=== PATIENT | female | born 1940 | race Caucasian/White ===

== ENCOUNTER 2025-10-09 11:27 | Outpatient (OUT) | payer MEDICARE, OTHER, SELFPAY ==
--- OUTSIDE RECORDS SUMMARY | 2025-09-29 15:00 | XMS_ITS | Encounter Summary ---
Author Organization [employer] [facility] tem Address [facility] [place]-[id number] [address] [place] [address] Care Team Providers Care Contact Assembler Name Role Phone Salome Cohen APRN-CHAPITO Primary Care Provider Reason for Visit * ReasonCommentsNew PatientPatient presents for research professional appointment for Memory changes. Presents with son. * Consultation (Routine) - Pending ReviewSpecialtyDiagnoses / ProceduresReferred By ContactReferred To ContactNeurology Diagnoses Memory changes Salome Cohen, DRAFTER APPRENTICE-INSTRUCTOR TAP DANCING [address] [place] [address] Phone: tel: fax: Lorie Jacques MD [address] [place] [address] Phone: tel: fax: Referral IDStatusReasonStart DateExpiration DateVisits RequestedVisits [id number] Review Specialty Services Required Encounter Details DateTypeDepartmentCare Team (Latest Contact Info)Eljyyueougg59/09/2025 3:00 PM ESTOffice Visit [facility] [place] [address] [place] [address] New Gonzalez, L[place] [address] [facility], [facility] [address] [place] [address] Mixed dementia (CMS-HCC) (Primary Dx) Social History Tobacco UseTypesPacks/DayYears UsedDateSmoking Tobacco: NeverSmokeless Tobacco: NeverAlcohol UseStandard Drinks/WeekCommentsNo0 (1 standard drink = 0.6 oz pure alcohol)PHQ-2AnswerDate RecordedTotal Xzbtb5144ChildcareAnswerDate BcgpqbfaEgwrgeogdWopunvu30/12/2019EmploymentAnswerDate RecordedEmploymentUnknown 04/02/2019Hunger ScreeningAnswerDate RecordedWithin the past 12 months we worried whether our food would run out before we got money to buy more.Never True08/31/2025Within the past 12 months the food we bought just didn't last and we didn't have money to get more.Never True08/31/2025Purpose - LifeAnswerDate RecordedPurpose and direction in mkxhWaqlojq73/11/2021CommentsNoSex and Gender InformationValueDate RecordedSex Assigned at BirthNot on fileLegal Sex Qbjdsv3505/27/2015 12:03 PM EDTGender IdentityNot on fileSexual OrientationNot on filedocumented as of this encounter Last Filed Vital Signs Vital SignReadingTime TakenCommentsBlood Zwcyyvme630/7609/29/2025 3:00 PM EST lkbpPulse--Temperature--Respiratory Rate--Oxygen Saturation--Inhaled Oxygen Concentration--Nkowdo19 kg (141 lb)09/29/2025 3:00 PM WBQUhdasg572.6 cm (5' 4 ) 09/29/2025 3:00 PM ESTBody Mass Index24. 3:00 PM ESTdocumented in this encounter Functional Status * BPAnswerDate of RbaigtqzhuFbuuco444/7609/29/2025 3:00 PM Igor Fiore CMA * HeightAnswerDate of LoxgyvewgeNrainf3798/09/2025 3:00 PM Igor Fiore CMA * WeightAnswerDate of JlwqevpatqDgyikc680854/09/2025 3:00 PM Igor Fiore CMA * BEE (kcal)AnswerDate of EphqfghkwkXdsnfq430760/09/2025 3:00 PM ESTThierrye, Igor, DIGESTION OPERATOR * BSA (Calculated - sq m)AnswerDate of AssessmentAuthor1. 3:00 PM EST Monae, Igor, DIGESTION OPERATOR * BMI (Calculated)AnswerDate of OrjoxdtlhySxveza09. 3:00 PM ESTWitte, Igor, DIGESTION OPERATOR * Weight in (lb) to have BMI = 25AnswerDate of CmpixhwtyiYqosvj105. 3:00 PM ESTTraceette Igor, DIGESTION OPERATOR * BPAnswerDate of EotwxatyvdQrdths965 3:00 PM ESTWicassie, Igor, DIGESTION OPERATOR * HeightAnswerDate of GarlzeoxitXftdlh2164/09/2025 3:00 PM ESTWitte, Igor, DIGESTION OPERATOR * WeightAnswerDate of RmuvuwjeyqLkconp344364/09/2025 3:00 PM Joby Fioreis, DIGESTION OPERATOR * BEE (kcal)AnswerDate of IgsrtvqmwiOakdbb087007/09/2025 3:00 PM ESTMonae Igor, DIGESTION OPERATOR * BSA (Calculated - sq m)AnswerDate of AssessmentAuthor1. 3:00 PM EST Monae, Igor, DIGESTION OPERATOR * BMI (Calculated)AnswerDate of HdbewlboicUycddq75. 3:00 PM ESTWicassie, Igor, DIGESTION OPERATOR * Weight in (lb) to have BMI = 25AnswerDate of SctxmzkqkgHhwncs555. 3:00 PM ESTMonae Igor, DIGESTION OPERATOR documented as of this encounter Mental Status * BPAnswerEntry KanoRykctr474 3:00 PM ESTWitte, Igor, DIGESTION OPERATOR documented in this encounter Progress Notes * New Gonzalez PA-C - 09/29/2025 3:00 PM EST [facility] Office Note 09/28/2025 2:39 PM Patient info: Kami Kuhn is a 85 y.o. female Account No.: [id number] Acct: : 1940 PCP: DAVIDE Mcgill Chief Complaint: Patient, 85 year old female, presents today for initial Neurological evaluation regarding memory changes. Referred by Hossein AUGUSTINE Kami is present in the office today with her son. HPI: Some intermittent confusion and short-term memory lapses. Onset was within approximately the last 1 year, with gradual worsening. Home: lives with son and dvsawwjr-eg-qlq ADLs: able to complete on her own; started struggling with managing her medications over the past few months Ambulation: ambulates without an assistive device; pace has slowed a bit and reportedly takes smaller steps as well Driving: none Finances: does not manage herself; son took over this year (2024) Level of Education: 12th grade Sleep: - Average Amount: unclear - Dream Reenactment: no Paranoia: none Delusions: none Hallucinations: none (-) hx significant head injury/trauma: (-) hx PERCUSSION TUNER infection: (-) hx seizures: (-) hx stroke: (-) hx intracranial tumor/mass/cyst: (+) hx anxiety/depression/mood disorder: hx dysthymia (+) urinary incontinence: Social Hx: Tobacco: none Alcohol: none Illicit Substances: none Family Hx: Mother: DM, stroke, Alzheimer's Father: --- Siblings: DM, stroke Current Vitamins/Supplements: - Vitamin D3 - Ca2+ - Vitamin B12 - MVI Recent/Pertinent Labs: --- Previous Studies: 06/04/25: Brain MRI without contrast - No evidence of restricted diffusion to suggest acute or subacute age of infarction. - Severe small vessels ischemic change in the deep white matter supratentorially and the brainstem. - No evidence of intracranial mass or acute pathology. Past Medical Hx: See EMR Social Hx: Tobacco: none ETOH: none Illicit Substances: none Family Hx: Mother: DM, stroke, Alzheimer's Father: --- Siblings: DM, stroke Surgical Hx: See EMR Allergies: See EMR Review of Systems: Constitutional: Negative for fever, chills, sweats, or unintentional weight loss Eyes: Negative HENT: Negative Cardiovascular: Negative for chest pain and palpitations Respiratory: Negative for cough and shortness of breath Gastrointestinal: Negative for nausea, vomiting, abdominal pain and diarrhea Genitourinary: Negative for dysuria, urgency, frequency, or hematuria Musculoskeletal: Negative for myalgias or joint swelling Skin: Negative Neurological: - as noted in the HPI Psychiatric/Behavioral: Negative Endocrine: Negative Hem/Onc: Negative Allergy/Immunology: Negative Vitals: BP: 138/76 HR: --- Weight: 64 kg Physical Exam: General: well groomed, appears stated age Neurological Exam: The patient is awake, alert, and attentive Speech and language are fairly normal Normal affect, with decreased orientation and cognition EOMI, PERRL, No gross visual field deficits Face is symmetric, Tongue protrudes midline Palate rises symmetrically with uvula midline Shoulder shrug is strong bilaterally Nose to finger testing is without dysmetria Upper Extremity Drift is (-) Fine motor skills are approximately equal in each hand Tremor: (-) Sensation is intact and symmetric in the extremities bilaterally DTR's are 1+ along the right side and 2+ along the left side Sanchez's sign (-) bilaterally Strength throughout the Upper Extremities is 5/5 Strength throughout the Lower Extremities is 5/5 Muscle Tone throughout the extremities is normal without rigidity or cog-wheeling Romberg is (); not tested today Gait is steady with normal base, shortened strides and reduced bilateral arm swing MOCA: 08/20 ASSESSMENT: Kami is an 85 year old left hand dominant female with a hx of arthritis, dysthymia, constipation, and insomnia who has signs and symptoms most consistent with mild-moderate dementia, 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 PLAN: Labs: ESR, CRP, ANCA, Lyme, Heavy Metals; CMP, Thyroid profile, and Vitamin B12 already ordered by PCP Start Donepezil 5 mg HS Supportive Care Follow up in the office in 3 months with myself and [address] Claudia MELO Electronically Signed by: New Gonzalez PA-C 09/29/25 1634 documented in this encounter Plan of Treatment DateTypeDepartmentCare Team (Latest Contact Info)Zfjucudbcav67/10/2026 1:00 PM EDTOffice Visit [facility] [place] [address] [place] [address] New Gonzalez PA-C [address], [address] [place] [address] 12/31/2025 2:45 PM EDTOffice Visit [facility] [address] [place] [address] Salome Cohen, DRAFTER APPRENTICE-INSTRUCTOR T[employer] DANCING [address] [place] [address] 04/13/2026 1:30 PM EDTOffice Visit [facility] [place] [address] [place] [address] Alex Taylor MD [address] [place] [address] [address] [place] [address] NameTypePriorityAssociated DiagnosesOrder ScheduleErythrocyte Sedimentation Rate (ESR)LabRoutine Mixed dementia ([facility]) 1 Occurrences starting 09/29/2025 until 6C-reactive proteinLabRoutine Mixed dementia ([facility]) 1 Occurrences starting 09/29/2025 until 09/29/2026ytoplasmic Neutrophilic Ab (ANCA), SLabRoutine Mixed dementia ([facility]) 1 Occurrences starting 09/29/2025 until 09/29/2026Lyme TotalLabRoutine Mixed dementia ([facility]) 1 Occurrences starting 09/29/2025 until 09/29/2026Heavy Metals Scrn with DemographicsLabRoutine Mixed dementia ([facility]) 1 Occurrences starting 09/29/2025 until 09/29/2026documented as of this encounter Procedures Procedure NamePriorityDate/TimeAssociated DiagnosisCommentsAMB REFERRAL TO YJSMONMOFUfwwiqu21/09/2025 4:34 PM ESTdocumented in this encounter Results * [facility] [place], [place] (09/29/2025 4:34 PM EST) Narrative Authorizing ProviderResult TypeResult StatusSalome Cohen DRAFTER APPRENTICE-CNPOUTPATIENT REFERRAL ORDERABLESFinal ResultPerforming OrganizationAddressCity/State/ZIP Code Phone Number MANUALLY TRANSCRIBED RESULTS documented in this encounter Visit Diagnoses Diagnosis Mixed dementia (CMS-HCC)- Primary documented in this encounter Additional Health Concerns AssessmentNoted TimePHQ-9 Depression Total Score: 1:44 PM EDTA Body Mass Index follow-up plan has been documented for the yaepyjc1002/12/2025 4:01 PM EDTdocumented as of this encounter Care Teams Team MemberRelationshipSpecialtyStart DateEnd Date Salome Cohen, DRAFTER APPRENTICE-INSTRUCTOR TAP DANCING [address] [place] [address] PCP - GeneralFamily Medicine03/28/22documented as of this encounter
--- OUTSIDE RECORDS SUMMARY | 2025-10-09 11:33 | XMS_ITS | Encounter Summary ---
Author Organization [id number] [address] [place] [address] Care Team Providers Care Electronics Manufacturer Name Role Phone Salome Cohen APRN-SALES AGENT BUSINESS SERVICES Primary Care Provider Encounter Details DateTypeDepartmentCare Team (Latest Contact Info)Ybaawvgysan84/08/2025Telephone [facility] [address] [place] [address] Salome Cohen, ASSOCIATE ENTERTAINMENT EDITOR-SALES AGENT BUSINESS SERVICES [address] [place] [address] Social History Tobacco UseTypesPacks/DayYears UsedDateSmoking Tobacco: NeverSmokeless Tobacco: NeverAlcohol UseStandard Drinks/WeekCommentsNo0 (1 standard drink = 0.6 oz pure alcohol)PHQ-2AnswerDate RecordedTotal Skrod2414ChildcareAnswerDate LbsaaykwTqamhwyiwWsgpkve12/12/2019EmploymentAnswerDate RecordedEmploymentUnknown 04/02/2019Hunger ScreeningAnswerDate RecordedWithin the past 12 months we worried whether our food would run out before we got money to buy more.Never True08/31/2025Within the past 12 months the food we bought just didn't last and we didn't have money to get more.Never True08/31/2025Purpose - LifeAnswerDate RecordedPurpose and direction in gkceBmhgzth33/11/2021CommentsNoSex and Gender InformationValueDate RecordedSex Assigned at BirthNot on fileLegal Sex Opwyzm1605/27/2015 12:03 PM EDTGender IdentityNot on fileSexual OrientationNot on filedocumented as of this encounter Miscellaneous Notes * Telephone Encounter - Sylwia Nash - 09/28/2025 3:42 PM EST Alexandre says the oxybutynin does not seem to be helping much, he says Kami does not know when she has to urinate * Telephone Encounter - DAVIDE Mcgill - 09/28/2025 3:42 PM EST Will try one more medicine called myrbetriq. Please keep me updated. * Telephone Encounter - Sylwia Nash - 09/28/2025 3:42 PM EST Alexandre informed documented in this encounter Plan of Treatment DateTypeDepartmentCare Team (Latest Contact Info)Mtydvujnhvn80/10/2026 1:00 PM EDTOffice Visit [facility] [place] [address] [place] [address] New Gonzalez, PA-C [address] [facility] [address] [place] [address] 12/31/2025 2:45 PM EDTOffice Visit [facility] [address] [address] Salome Cohen APRN-CNP [address] [place] [address] 04/13/2026 1:30 PM EDTOffice Visit [facility] [place] [address] Alex Taylor MD [address] [facility], [facility] [address] [place] [address] documented as of this encounter Visit Diagnoses Diagnosis Mixed urge and stress incontinence- Primary Mixed incontinence urge and stress (male)(female) documented in this encounter Additional Health Concerns AssessmentNoted TimePHQ-9 Depression Total Score: 1:44 PM EDTA Body Mass Index follow-up plan has been documented for the rmcxszo7302/12/2025 4:01 PM EDTdocumented as of this encounter Care Teams Team MemberRelationshipSpecialtyStart DateEnd Date Salome Cohen, JIMENEZ-SALES AGENT BUSINESS SERVICES [address] [place] [address] PCP - GeneralFamily Medicine03/28/22documented as of this encounter
--- OUTSIDE RECORDS SUMMARY | 2025-10-09 11:33 | XMS_ITS | Encounter Summary ---
Author Organization [facility] tem Address [facility] [place]-[id number] [address] [place] [address] Care Team Providers Care Esthetics Instructor Name Role Phone Salome Cohen APRN-AUTO REFINISHER Primary Care Provider Encounter Details DateTypeDepartmentCare Team (Latest Contact Info)Orirfnquack48/10/2025Telephone [facility] [address] [place] [address] Salome Cohen, BOOM OPERATOR-AUTO REFINISHER [address] [place] [address] Social History Tobacco UseTypesPacks/DayYears UsedDateSmoking Tobacco: NeverSmokeless Tobacco: NeverAlcohol UseStandard Drinks/WeekCommentsNo0 (1 standard drink = 0.6 oz pure alcohol)PHQ-2AnswerDate RecordedTotal Dbswt1284ChildcareAnswerDate RluisqsfPfrlfroyzNuilbav36/12/2019EmploymentAnswerDate RecordedEmploymentUnknown 04/02/2019Hunger ScreeningAnswerDate RecordedWithin the past 12 months we worried whether our food would run out before we got money to buy more.Never True08/31/2025Within the past 12 months the food we bought just didn't last and we didn't have money to get more.Never True08/31/2025Purpose - LifeAnswerDate RecordedPurpose and direction in tzroTswzisr43/11/2021CommentsNoSex and Gender InformationValueDate RecordedSex Assigned at BirthNot on fileLegal Sex Vgfacr3105/27/2015 12:03 PM EDTGender IdentityNot on fileSexual OrientationNot on filedocumented as of this encounter Miscellaneous Notes * Telephone Encounter - Sylwia Nash - 09/30/2025 1:53 PM EST Alexandre says the new medication is over $300 and they cannot afford that, is there something different you can send? * Telephone Encounter - DAVIDE Mcgill - 09/30/2025 1:53 PM EST New medication sent * Telephone Encounter - Sylwia Nash - 09/30/2025 1:53 PM EST Alexandre torin documented in this encounter Plan of Treatment DateTypeDepartmentCare Team (Latest Contact Info)Tjyizdumgis59/10/2026 1:00 PM EDTOffice Visit [facility] [place] [address] [place] [address] New Gonzalez, PA-C [address] [facility], [facility] [address] [place] [address] 12/31/2025 2:45 PM EDTOffice Visit [facility] [address] [place] [address] Salome Cohen APRN-CNP [address] [place] [address] 04/13/2026 1:30 PM EDTOffice Visit [facility] [place] [address] [place] [address] Alex Taylor MD [address] [facility] [address] [place] [address] documented as of this encounter Visit Diagnoses Diagnosis Mixed urge and stress incontinence- Primary Mixed incontinence urge and stress (male)(female) documented in this encounter Additional Health Concerns AssessmentNoted TimePHQ-9 Depression Total Score: 1:44 PM EDTA Body Mass Index follow-up plan has been documented for the lhrxqmn0502/12/2025 4:01 PM EDTdocumented as of this encounter Care Teams Team MemberRelationshipSpecialtyStart DateEnd Date Salome Cohen, JIMENEZ-AUTO REFINISHER [address] [place] [address] PCP - GeneralFamily Medicine03/28/22documented as of this encounter
--- OUTSIDE RECORDS SUMMARY | 2025-10-09 11:33 | XMS_ITS | Encounter Summary ---
Author Organization [facility] Address [id number] [address] [place] [address] Care Team Providers Care Farm Boss Name Role Phone Salome Cohen APRN-HOG STICKER Primary Care Provider Reason for Visit * ReasonCommentsMed Refill Encounter Details DateTypeDepartmentCare Team (Latest Contact Info)Dhcvgtpnbmk16/15/2025Refill [facility] [address] [place] [address] Salome Cohen, EARLY LEARNING TEACHER-HOG STICKER [address] [place] [address] Primary insomnia Social History Tobacco UseTypesPacks/DayYears UsedDateSmoking Tobacco: NeverSmokeless Tobacco: NeverAlcohol UseStandard Drinks/WeekCommentsNo0 (1 standard drink = 0.6 oz pure alcohol)PHQ-2AnswerDate RecordedTotal Igkcq1514ChildcareAnswerDate VqaakbvoRginhbiliFidydkb07/12/2019EmploymentAnswerDate RecordedEmploymentUnknown 04/02/2019Hunger ScreeningAnswerDate RecordedWithin the past 12 months we worried whether our food would run out before we got money to buy more.Never True08/31/2025Within the past 12 months the food we bought just didn't last and we didn't have money to get more.Never True08/31/2025Purpose - LifeAnswerDate RecordedPurpose and direction in hglkKvqzymj60/11/2021CommentsNoSex and Gender InformationValueDate RecordedSex Assigned at BirthNot on fileLegal Sex Jcrxnk0005/27/2015 12:03 PM EDTGender IdentityNot on fileSexual OrientationNot on filedocumented as of this encounter Plan of Treatment DateTypeDepartmentCare Team (Latest Contact Info)Jmgzkaejsag84/10/2026 1:00 PM EDTOffice Visit [facility] [place] [address] [place] [address] New Gonzalez, LOUC [address] [facility] [address] [place] [address] 12/31/2025 2:45 PM EDTOffice Visit [facility] [address] [place] [address] Salome Cohen EARLY LEARNING TEACHER-HOG STICKER [address] [place] [address] 04/13/2026 1:30 PM EDTOffice Visit [facility] [place] [address] [place] [address] Alex Taylor MD [address] [facility] [address] [place] [address] documented as of this encounter Visit Diagnoses Diagnosis Primary insomnia Persistent disorder of initiating or maintaining sleep documented in this encounter Additional Health Concerns AssessmentNoted TimePHQ-9 Depression Total Score: 1:44 PM EDTA Body Mass Index follow-up plan has been documented for the uswdsru9802/12/2025 4:01 PM EDTdocumented as of this encounter Care Teams Team MemberRelationshipSpecialtyStart DateEnd Date Salome Cohen, EARLY LEARNING TEACHER-HOG STICKER [address] [place] [address] PCP - GeneralFamily Medicine03/28/22documented as of this encounter
--- OUTSIDE RECORDS SUMMARY | 2025-10-09 11:33 | XMS_ITS | Clinical Summary ---
Author Organization [facility] Address [address] [place] [address] Care Team Providers Care Disassembler Product Name Role Phone Unavailable Primary Care Provider Unavailabl e Encounters DateTypeDepartmentCare NtkqYdtiyhwibtx00/07/2025 1:30 PM EDTTreatment [facility] [place] [facility] [address] [place] [address] Poli Golden, GLOBAL LOGISTICS MANAGER Weakness (Primary Dx); Repeated falls07/28/2025amboo flowsheet [facility] [place] [facility] [address] [place] [address] Poli Golden, GLOBAL LOGISTICS MANAGER 07/28/20250549Tdukcf62/03/2025 12:00 PM EDTTreatment [facility] [place] [facility] [address] [place] [address] Poli Golden, GLOBAL LOGISTICS MANAGER Weakness (Primary Dx); Repeated falls07/24/2025amboo flowsheet [facility] [place] [facility] [address] [place] [address] Poli Golden, GLOBAL LOGISTICS MANAGER 07/24/20252851Hmlytd05/25/2025 2:30 PM EDTTreatment [facility] [place] [facility] [address] [place] [address] Sara Hickman, PT Weakness (Primary Dx); Repeated falls07/16/2025amboo flowsheet [facility] [place] [facility] [address] [place] [address] Sara Hickman, PT 07/16/20254775Qjzldd97/22/2025 2:00 PM EDTTreatment [facility] [place] [facility] [address] [place] [address] BrDariel maysall, GLOBAL LOGISTICS MANAGER Weakness (Primary Dx); Repeated falls5Bamboo flowsheet [facility] [place] [facility] [address] [place] [address] BrDariel maysall, GLOBAL LOGISTICS MANAGER 07/13/20254326Ynhesx09/19/2025 2:30 PM EDTTreatment [facility] [place] [facility] [address] [place] [address] Kelbley, Bianca, GLOBAL LOGISTICS MANAGER Weakness (Primary Dx); Repeated falls5Bamboo flowsheet [facility] [place] [facility] [address] [place] [address] Bianca Simpson, GLOBAL LOGISTICS MANAGER 07/10/2025Travelfrom Last 3 Months Social History Tobacco UseTypesPacks/DayYears UsedDateSmoking Tobacco: Never Assessed CommentsUnknownSex and Gender InformationValueDate RecordedSex Assigned at Not on fileLegal BuxCblmhv29/18/2025 3:25 PM EDTGender IdentityNot on fileSexual OrientationNot on file Plan of Treatment Health MaintenanceDue DateLast DoneCommentsCOVID-19 Vaccine ( season) 5110/27/2021, 09/23/2021, 01/12/2021, Additional history exists Pneumococcal Vaccine: 65+ QhdzaHrcezwxtf67/08/2018, 02/21/2017Influenza Vaccine Dkyivhxhn62/10/2025, 08/05/2024, 08/27/2022, Additional history exists Insurance * Guarantor: Kami KuhnAccount TypeRelation to PatientDate of BirthPhone Billing AddressPersonal/GucngbFkcu1940 [facility] [address]
--- OUTSIDE RECORDS SUMMARY | 2025-10-09 11:33 | XMS_ITS | Encounter Summary ---
Author Organization [facility] [facility] Address [id number] [address] [place] [address] Care Team Providers Care Arborer Name Role Phone Salome Cohen Gurjit GAONA-BELL NECK HAMMERER Primary Care Provider Encounter Details DateTypeDepartmentCare Team (Latest Contact Info)Orblwukdjam13/09/2025Travel Social History Tobacco UseTypesPacks/DayYears UsedDateSmoking Tobacco: NeverSmokeless Tobacco: NeverAlcohol UseStandard Drinks/WeekCommentsNo0 (1 standard drink = 0.6 oz pure alcohol)PHQ-2AnswerDate RecordedTotal Jzkai1454ChildcareAnswerDate TkkvsgpxQynnrkekvOfcdeml29/12/2019EmploymentAnswerDate RecordedEmploymentUnknown 04/02/2019Hunger ScreeningAnswerDate RecordedWithin the past 12 months we worried whether our food would run out before we got money to buy more.Never True08/31/2025Within the past 12 months the food we bought just didn't last and we didn't have money to get more.Never True08/31/2025Purpose - LifeAnswerDate RecordedPurpose and direction in kmtfPnddbej04/11/2021CommentsNoSex and Gender InformationValueDate RecordedSex Assigned at BirthNot on fileLegal Sex Clmpri1905/27/2015 12:03 PM EDTGender IdentityNot on fileSexual OrientationNot on filedocumented as of this encounter Plan of Treatment DateTypeDepartmentCare Team (Latest Contact Info)Xdzxaprqnzl52/10/2026 1:00 PM EDTOffice Visit [facility] [place] [address] [place] [phone] [place], PA-C [address] [facility] [address] [place] [phone] 12/31/2025 2:45 PM EDTOffice Visit [facility] [address] [address] Salome Cohen, WASTE BALER-BELL NECK HAMMERER [address] [place] [address] 04/13/2026 1:30 PM EDTOffice Visit [facility] [place] [address] [place] [phone] Alex Taylor MD [address] [place] [address] [address] [place] [phone] documented as of this encounter Visit Diagnoses Not on filedocumented in this encounter Additional Health Concerns AssessmentNoted TimePHQ-9 Depression Total Score: 1:44 PM EDTA Body Mass Index follow-up plan has been documented for the jjcomyo5702/12/2025 4:01 PM EDTdocumented as of this encounter Care Teams Team MemberRelationshipSpecialtyStart DateEnd Date Salome Cohen, WASTE BALER-BELL NECK HAMMERER [address] [place] [address] PCP - GeneralFamily Medicine03/28/22documented as of this encounter
--- OUTSIDE RECORDS SUMMARY | 2025-10-09 11:33 | XMS_ITS | Clinical Summary ---
Author Organization [employer] Address [facility] [id number] [address] [place] [address] Care Team Providers Care Anode Machine Operator Name Role Phone Salome Cohen APRN-OUTREACH COUNSELOR Primary Care Provider Allergies No known active allergies Medications MedicationSigDispense QuantityRefillsLast FilledStart DateEnd DateStatus multivit with calcium,iron,min (WOMEN'S DAILY MULTIVITAMIN ORAL) Take 1 tablet by mouth in the morning. Patient takes a package of vitamins specifically designed for women over 50. .Active loratadine (CLARITIN) 10 mg tablet Indications:allergic rhinitisTake 1 tablet (10 mg total) by mouth in the morning. Indications: inflammation of the nose due to an allergy.Active CALCIUM ORAL Take 1 tablet by mouth in the morning.Active cholecalciferol, vitamin D3, (VITAMIN D3 ORAL) Take 1 tablet by mouth in the morning.Active cyanocobalamin, vitamin B-12, (VITAMIN B-12 ORAL) Take 1 tablet by mouth in the morning.Active sertraline (ZOLOFT) 50 mg tablet Indications:DysthymiaTAKE 1 TABLET BY MOUTH NIGHTLY 90 tablet 5Active alendronate (FOSAMAX) 70 mg tablet Indications:Age-related osteoporosis without current pathological fractureTAKE 1 TABLET BY MOUTH ONCE A WEEK 12 tablet 5Active mirabegron (MYRBETRIQ) 25 mg tablet extended release 24 hr Indications:Mixed urge and stress incontinenceTake 1 tablet (25 mg total) by mouth in the morning. 30 tablet 5Active donepeziL (ARICEPT) 5 mg tablet Indications:Mixed dementia (CMS-HCC)Take 1 tablet (5 mg total) by mouth nightly. 30 tablet 5Active tolterodine LA (DETROL LA) 2 mg 24 hr capsule Indications:Mixed urge and stress incontinenceTake 1 capsule (2 mg total) by mouth in the morning. 30 capsule 5Active doxepin (SILENOR) 3 mg tablet Indications:Primary insomniaTAKE 1 TABLET BY MOUTH NIGHTLY, 30 MINUTES prior to bedtime 90 tablet 5Active doxepin (SILENOR) 3 mg tablet Indications:Primary insomniaTake 1 tablet (3 mg total) by mouth nightly. Take 30 minutes prior to bed 90 tablet /75744512/06/2024Discontinued oxybutynin XL (DITROPAN-XL) 5 mg 24 hr tablet Indications:Mixed urge and stress incontinenceTake 1 tablet (5 mg total) by mouth in the morning. 30 tablet Discontinued(Ineffective) Active Problems ProblemNoted DateDiagnosed DatePrimary zawzuhqz22/08/5586Dybptqjyi09/08/2022 Memory eepdlvt5712/23/2018Psychophysiological xurzoigm00/04/2019Constipation 12/23/2018Varicose veins of both lower yuljyfclxiu97/10/2018 Resolved Problems ProblemNoted DateDiagnosed DateResolved DateCurrent moderate episode of major depressive disorder without prior alznvae44 Encounters DateTypeDepartmentCare YrklMbndgktlqpj04/15/2025Refill [facility] [address] [place] [address] [address] [place] [address] Salome Cohen APRN-CNP Primary hpvqrrir85/10/2025Telephone [facility] [address] [place] [address] [address] [place] [phone] Salome Cohen APRN-CNP 09/29/2025 3:00 PM ESTOffice Visit [facility] [address] [address] [place] PA-C Mixed dementia (CMS-HCC) (Primary Dx)09/29/20251869Opsaql12/08/2025Telephone [facility] [address] [place] [address] [address] [place] [phone] Salome Cohen APRN-CHAPITO 09/23/2025Telephone [facility] of [facility] [address] [facility] [address] [place] [address] Inderjit Duarte [birth year] - [birth year]09 RUSSELL RUYKAAJQISY08/28/2025Telephone [facility] of [facility] [address] [facility] [address] [place] [phone] Yessy Sellers 09/15/2025Telephone [facility] [address] [place] [address] [address] [place] [address] Salome Cohen APRN-CHAPITO 08/31/2025 3:15 PM ESTOffice Visit [facility] [address] [place] [address] [address] [place] [address] Salome Cohen, WIRELESS OPERATOR-OUTREACH COUNSELOR Dysthymia (Primary Dx); Memory changes; Generalized weakness; Mixed urge and stress incontinence; Unintended weight loss; B12 deficiency; Encounter for immunization; Healthcare zbpwttggzqo81/10/9772Wzjcld98/07/2025Telephone [facility] [address] [place] [address] [address] [place] [address] Iris Emmanuel LPN from Last 3 Months Immunizations ImmunizationAdministration DatesNext DueCOVID-19, mRNA, LNP-S, PF, 100mcg/0.5mL Dose09/23/2021,01/12/2021,12/16/2020ovid-19, Mrna, Lnp-s, Bivalent, Pf, 50mcg/0.5ml or 25mcg/0.25ml08/27/2022Influenza High Dose Preservative Free IM 10/13/2019,07/29/2018Influenza, High-dose, Hsmupqvnzzdn59/06/2021,09/02/2020 Influenza, Injectable, quadrivalent (PF)08/24/2022Influenza, Trivalent, Uycqzbmawb72/10/2025,4Pneumococcal Conjugate 13-Racvhx7402/21/2017 Pneumococcal Pijdtfsxzcxjtx91/08/2018 Family History Medical HistoryRelationNameCommentsStrokeBrotherAlzheimer's diseaseMother DiabetesMotherStrokeMotherDiabetesSister 1StrokeSister 2Breast cancerNeg Hx RelationNameStatusCommentsBrotherDeceasedFatherDeceasedMotherDeceasedSister 1 DeceasedSister 2DeceasedSonAlive Social History Tobacco UseTypesPacks/DayYears UsedDateSmoking Tobacco: NeverSmokeless Tobacco: Never Tobacco Cessation:Counseling Given: Not Answered Alcohol UseStandard Drinks/WeekCommentsNo0 (1 standard drink = 0.6 oz pure alcohol)PHQ-2AnswerDate RecordedTotal Crxgr6454ChildcareAnswerDate MmlvjazvKxzpbykvuKzidozz49/12/2019EmploymentAnswerDate RecordedEmploymentUnknown 04/02/2019Hunger ScreeningAnswerDate RecordedWithin the past 12 months we worried whether our food would run out before we got money to buy more.Never True08/31/2025Within the past 12 months the food we bought just didn't last and we didn't have money to get more.Never True08/31/2025Purpose - LifeAnswerDate RecordedPurpose and direction in bcovTpafhyq93/11/2021CommentsNoSex and Gender InformationValueDate RecordedSex Assigned at BirthNot on fileLegal Sex Lxtsdk4905/27/2015 12:03 PM EDTGender IdentityNot on fileSexual OrientationNot on file Last Filed Vital Signs Vital SignReadingTime TakenCommentsBlood Ytakxhlw227/7609/29/2025 3:00 PM EST buznKepbw56799/10/2025 3:09 PM FEDYcnjlgleaka81 ??C (98.6 ??F)02/12/2025 3:13 PM EDTRespiratory Rate--Oxygen Mvydunizlz26%08/31/2025 3:09 PM ESTInhaled Oxygen Concentration--Vqmptk84 kg (141 lb)09/29/2025 3:00 PM VTVOwedwq368.6 cm (5' 4 ) 09/29/2025 3:00 PM ESTBody Mass Index24. 3:00 PM EST Plan of Treatment DateTypeDepartmentCare Team (Latest Contact Info)Blyrqlqunoo26/10/2026 1:00 PM EDTOffice Visit [facility] [place] [address] [place] [address] [place], PAEduardC [address] [facility] [address] [place] [address] 12/31/2025 2:45 PM EDTOffice Visit [facility] [address] [place] [address] Salome Cohen, WIRELESS OPERATOR-OUTREACH COUNSELOR [address] [place] [address] 04/13/2026 1:30 PM EDTOffice Visit [facility] [place] [address] [place] [address] Alex Taylor MD [address] [place] [address] [address] [place] [address] Health MaintenanceDue DateLast DoneCommentsDTaP,Tdap and Td Vaccines (1 - Tdap) 1961Zoster (Shingles) Vaccine (1 of 2)1992RSV ( or age 60+ yrs) (1 - 1-dose 75+ series)2017Medicare Annual Wellness Visit04/22/2025 04/22/2024, 11/01/2021, 10/26/2020, Additional history existsDepression Krhlnbfba89/OVID-19 Vaccine ( season)2025 08/27/2022, 09/23/2021, 01/12/2021, Additional history existsFall Risk Screening 604/Tobacco Cbhkhfeim05/09/766785/06/2025Influenza Vaccine Jbjzsrckb37/10/2025, 08/05/2024, 08/24/2022, Additional history exists Medical Devices Not on file Procedures Procedure NamePriorityDate/TimeAssociated DiagnosisCommentsAMB REFERRAL TO KMMIMIXWARadbzwa80/09/2025 4:34 PM ESTfrom Last 3 Months Results * [facility] [place], [place] (09/29/2025 4:34 PM EST) Narrative Authorizing ProviderResult TypeResult StatusSalome Cohen APRN-CNPOUTPATIENT REFERRAL ORDERABLESFinal ResultPerforming OrganizationAddressCity/State/ZIP Code Phone Number MANUALLY TRANSCRIBED RESULTS from Last 3 Months Insurance Care Teams Team MemberRelationshipSpecialtyStart DateEnd Date Salome Cohen APRN-OUTREACH COUNSELOR [address] [place] [address] [facility]03/28/22
[2025-10-09 13:49] LABS: Alanine Aminotransferase 15 U/L (14-59); Albumin Globulin Ratio 1.1; Albumin Level 3.8 g/dL (3.4-5.0); Alkaline Phosphatase 60 U/L (46-116); Anion Gap 6.3; Aspartate Amino Transferase 9 U/L (15-37); Blood Urea Nitrogen 17.0 mg/dL (7.0-18.0); Calcium 9.8 mg/dL (8.5-10.1); Carbon Dioxide 31.1 mmol/L (21.0-32.0); Chloride 105 mmol/L (98-107); Estimated GFR (African America >60 (>=60 mL/min/1.73m^2); Estimated GFR (Non-African Ame >60 (>=60 mL/min/1.73m^2); Globulin 3.6 g/dL; Glucose 122 mg/dL (74-106); Potassium 3.4 mmol/L (3.5-5.1); Sodium 139 mmol/L (136-145); Thyroid Stimulating Hormone 2.702 uIU/mL (0.358-3.740); Total Protein 7.4 g/dL (6.4-8.2)
[2025-10-10 04:07] LABS: Vitamin B12 1192 pg/mL (232-1245)
== END 2025-10-09 11:28 | disposition home or self-care (01) ==
DX: R63.4 Abnormal weight loss (principal); F34.1 Dysthymic disorder
CPT/HCPCS: 36415; 80053; 82607; 84439; 84443

== ENCOUNTER 2025-10-09 11:39 | Outpatient (OUT) | payer MEDICARE, OTHER, SELFPAY | END 2025-10-09 11:40 | disposition home or self-care (01) | PROVIDERS: Visit Provider Physician Assistant Medical | DX: G30.9 Alzheimer's disease, unspecified (principal); F01.50 Vascular dementia, unspecified severity, without behavioral disturbance, psychotic disturbance, mood disturbance, and anxiety; F02.80 Dementia in other diseases classified elsewhere, unspecified severity, without behavioral disturbance, psychotic disturbance, mood disturbance, and anxiety; R63.4 Abnormal weight loss; F34.1 Dysthymic disorder | CPT/HCPCS: 36415; 80053; 82607; 83516; 84439; 84443; 85652; 86037; 86140; 86618 ==